=== PATIENT | female | born 1990 | race African-American/Black ===

== ENCOUNTER 2018-06-05 12:36 | Emergency (ER) | payer OTHER ==
[~2018-06-05] VITALS: Ht 165.1 cm; Wt 113.4 kg
[~2018-06-05 12:36] MED LIST: FIORICET 50-321 EACH PO; PHENERGAN 25 MG25 M1 PO
[2018-06-05 12:38] VITALS: BP 164/92
[2018-06-05] MEDS ORDERED: AMOXICILLIN 50500 MG PO (13:27)
== END 2018-06-05 13:34 | disposition home or self-care (01) ==
LOC: ER 12:36
DX: J02.0 Streptococcal pharyngitis (principal)